=== PATIENT | female | born 1995 | race Caucasian/White ===

== ENCOUNTER 2020-02-05 14:09 | Emergency (ER) | payer MEDICAID ==
[~2020-02-05] VITALS: Ht 162.6 cm; Wt 77.3 kg
[2020-02-05 14:14] VITALS: TEMP 98.1
[2020-02-05 14:44] LABS: COLLECTION METHOD CLEAN CATCH
[2020-02-05 14:52] LABS: PH 6 (5-8); SQUAMOUS EPITHELIAL 0-2 /hpf; URINE APPEARANCE Clear; URINE BACTERIA None Seen /hpf; URINE BILIRUBIN Negative (NEGATIVE); URINE BLOOD 2+ (NEGATIVE); URINE COLOR Yellow; URINE GLUCOSE Negative (NEGATIVE); URINE KETONE Negative (NEGATIVE); URINE LEUKOCYTE ESTERASE Negative (NEGATIVE); URINE NITRATE Negative (NEGATIVE); URINE PROTEIN(semi-quant) Negative (NEGATIVE); URINE RBC 0-2 /hpf; URINE UROBILINOGEN Negative (NEGATIVE)
[2020-02-05] MEDS ORDERED: NAPROXEN 3375 MG/TAB PO (16:26)
[2020-02-05] MEDS ORDERED: FLEXERIL 1010 MG/TAB PO (16:26)
[2020-02-05 16:36] VITALS: BP 115/79; PULSE 88
== END 2020-02-05 16:37 | disposition home or self-care (01) ==
LOC: COL.ER 14:09
PROVIDERS: Emergency Medicine
DX: M54.5 Low back pain (principal); M53.3 Sacrococcygeal disorders, not elsewhere classified; Z87.891 Personal history of nicotine dependence; Z32.02 Encounter for pregnancy test, result negative; Z79.1 Long term (current) use of non-steroidal anti-inflammatories (NSAID)
CPT/HCPCS: J1885